=== PATIENT | male | born 1950 | race Caucasian/White ===

== ENCOUNTER → 2019-07-14 | Outpatient (CLI) | payer MEDICARE, OTHER ==
--- NOTE | 2019-07-14 11:35 | RADIOLOGY REPORT (SQ) ---
EXAM DESCRIPTION: SHOULDER RIGHT 2 OR MORE VIEWS COMPLETED DATE/TIME: 07/14/2019 9:32 am REASON FOR STUDY: PAIN IN RIGHT SHOULDER M25.511 PAIN IN RIGHT SHOULDER COMPARISON: None. NUMBER OF VIEWS: Three views. TECHNIQUE: Internal rotation, external rotation, and Y view images acquired of the right shoulder. LIMITATIONS: None. FINDINGS: MINERALIZATION: Normal. BONES: No acute fracture. No worrisome bone lesions. Large osteophytes in the acromioclavicular joint . GLENOHUMERAL JOINT: No significant findings. ACROMIOCLAVICULAR JOINT: Large osteophytes. SOFT TISSUES: No calcifications. VISUALIZED RIBS, SPINE, AND LUNG: Old rib fractures. No acute findings. OTHER: No other significant finding. IMPRESSION: DEGENERATIVE CHANGES WITH LARGE OSTEOPHYTES IN THE ACROMIOCLAVICULAR JOINT. NO ACUTE FI NDINGS. TECHNICAL DOCUMENTATION: JOB ID: [id number] [employer]- All Rights Reserved Reading location - IP/workstation name: [email or web address]
== END ==
LOC: OD 09:16
PROVIDERS: ATTEND Nurse Practitioner Family
DX: M19.011 Primary osteoarthritis, right shoulder (principal); M25.511 Pain in right shoulder

== ENCOUNTER → 2019-07-19 | Outpatient (CLI) | payer MEDICARE, OTHER ==
--- NOTE | 2019-07-19 16:43 | RADIOLOGY REPORT (SQ) ---
EXAM DESCRIPTION: U/S THYROID/SFT TISS HD NECK COMPLETED DATE/TIME: 07/19/2019 4:32 pm REASON FOR STUDY: E04.9 NONTOXIC GOITER, UNSPECIFIED E04.9 NONTOXIC GOITER, UNSPECIFIED COMPARISON: CT cervical spine 09/02/2011 TECHNIQUE: Dynamic and static márquez-scale images acquired of the thyroid gland. Selected additional c olor/power Doppler images recorded. All images stored to PACS. LIMITATIONS: None. FINDINGS: RIGHT LOBE: 3.5 x 1.4 x 1.1 cm in size with heterogeneous echogenicity. No discrete cysti c or solid lesions. LEFT LOBE: 3.6 x 1.5 x 1.4 cm in size with heterogeneous echogenicity. 1 cm well-circumscribed solid nodule, isoechoic to thyroid wider than tall, smooth margins, without calcifications or comet tail a rtifacts (TI-RADS 3). ISTHMUS: Normal size. OTHER: No other significant finding. IMPRESSION: Small thyroid with heterogeneous echotexture likely from chronic thyroiditis. Probably benign 1 cm nodule left lobe thyroid, unchanged from prior CT exam 09/02/2011 COMMENT: The [employer] ([employer]) Thyroid Imaging Reporting And Data System (TI-RADS ) is an ultrasound feature based summed scoring system of risk categorization and management recommen dations for thyroid nodules. TI-RADS assessment categories are as follows: 0 - Incomplete exam: Additional imaging or comparison to prior examinations recommended. 1. - Benign: Fine-needle aspiration or follow-up not routinely recommended in the absence of clinical change. 2. - Not suspicious: Fine-needle aspiration or follow-up not routinely recommended in the absence of clinical change. 3. - Mildly suspicious: Fine-needle aspiration recommended if greater than or equal to 2.5 cm in size . Ultrasound follow-up recommended if greater than or equal to 1.5 cm in size. 4. - Moderately suspicious: Fine-needle aspiration recommended if greater than or equal to 1.5 cm in size. Ultrasound follow-up recommended if greater than or equal to 1.0 cm in size. 5. - Highly suspicious: Fine-needle aspiration recommended if greater than or equal to 1.0 cm in size . Ultrasound follow-up recommended if greater than or equal to 0.5 cm in size. TECHNICAL DOCUMENTATION: JOB ID: [id number]- All Rights Reserved Reading location - IP/workstation name: [email or web address]
== END ==
LOC: RAD 15:39
PROVIDERS: ATTEND Nurse Practitioner Family
DX: E04.9 Nontoxic goiter, unspecified (principal)
CPT/HCPCS: 76536

== ENCOUNTER → 2019-10-05 | Outpatient (CLI) | payer MEDICARE, OTHER ==
--- NOTE | 2019-10-05 15:13 | RADIOLOGY REPORT (SQ) ---
EXAM DESCRIPTION: SHOULDER LEFT 2 OR MORE VIEWS; SHOULDER RIGHT 2 OR MORE VIEWS COMPLETED DATE/TIME: 10/05/2019 1:32 pm REASON FOR STUDY: CHIQUI SHOULDER PAIN COMPARISON: 07/14/2019 right shoulder radiographs. FINDINGS: Three views left shoulder: Mild AC arthropathy. No fracture or bone lesion or subluxatio n or dislocation. Three views right shoulder: Mild -moderate AC arthropathy. No fracture or bone lesion or subluxatio n or dislocation. Chronic healed right lateral rib fractures. No pneumothorax. TECHNICAL DOCUMENTATION: JOB ID: [id number] Reading location - IP/workstation name: [email or web address]-
--- NOTE | 2019-10-05 15:13 | RADIOLOGY REPORT (SQ) ---
EXAM DESCRIPTION: SHOULDER LEFT 2 OR MORE VIEWS; SHOULDER RIGHT 2 OR MORE VIEWS COMPLETED DATE/TIME: 10/05/2019 1:32 pm REASON FOR STUDY: CHIQUI SHOULDER PAIN COMPARISON: 07/14/2019 right shoulder radiographs. FINDINGS: Three views left shoulder: Mild AC arthropathy. No fracture or bone lesion or subluxatio n or dislocation. Three views right shoulder: Mild -moderate AC arthropathy. No fracture or bone lesion or subluxatio n or dislocation. Chronic healed right lateral rib fractures. No pneumothorax. TECHNICAL DOCUMENTATION: JOB ID: [id number] Reading location - IP/workstation name: [facility]-
== END ==
LOC: OD 13:17
PROVIDERS: ATTEND Nurse Practitioner Family
DX: M25.512 Pain in left shoulder (principal); M25.511 Pain in right shoulder